=== PATIENT | female | born 1990 | race Two or more races ===

== ENCOUNTER 2020-09-17 12:31 | Emergency (ER) | payer OTHER ==
--- NOTE | 2020-09-17 13:33 | EDM.PDOC ---
ED HPI GENERAL MEDICAL PROBLEM - General Chief Complaint: Headache Stated Complaint: COVID SX/HEADACHE/NO TASTE OR SMELL Time Seen by Provider: 09/17/20 13:23 Source of Information: Reports: Patient History Limitations: Reports: No Limitations - History of Present Illness INITIAL COMMENTS - FREE TEXT/NARRATIVE: 30-year-old female attends the ED for concerns of developing COVID-19 illness. She states she has developed nasal congestion and sinus infection over the last 36 hours. Appreciated today and loss of sense of taste and smell. No significant cough fever or myalgia. Mild diffuse headache. Patient has had [email or web address] COVID-19 vaccination in May of this year. She had no ill effects from the vaccine. Patient has plans to travel to [place] within the next 3 weeks. T herefore she wants to know for sure if she had COVID-19 illness. Onset: Sudden Onset Date: 09/16/20 (Increase symptoms today of loss of sense of taste and smell.) Duration: Hour(s):, Getting Worse Location: Reports: Head (Headache), Face (Nasal and sinus congestion.) Quality: Reports: Ache Severity: Moderate Improves with: Reports: Medication (Has used Tylenol only once in the last 24 hours.) Worsens with: Reports: None Context: Reports: Other (Patient presents to rule out COVID-19 illness due to acute onset of symptoms of sinus congestion loss of sense of taste and smell. No associated cough. No nausea vomiting or diarrhea. Appetite is fair.). Denies: Activity, Exercise, Lifting, Sick Contact, Trauma Associated Symptoms: Reports: Loss of Appetite, Other (Reported loss of sense of taste and smell.). Denies: Confusion, Chest Pain, Cough, cough w sputum, Diaphoresis, Fever/Chills, Headaches, Malaise, Nausea/Vomiting, Rash, Seizure, S hortness of Breath, Syncope, Weakness Treatments ASSORTER: Reports: Acetaminophen Headache Pain Score (Numeric/FACES): 6 - Related Data Allergies Allergy/AdvReac Type Severity Reaction Status Date / Time No Known Allergies Allergy Verified 09/17/20 13:06 Home Meds: Home Meds Cefdinir [Omnicef] 300 mg PO BID #16 cap 09/17/20 [Rx] Loratadine/Pseudoephedrine [Claritin-D 24 Hour Tablet] 1 each PO DAILY #5 tab.er.24h 09/17/20 [Rx] Past Medical History - Past Surgical History Female Surgical History: Reports: Section Social & Family History - Tobacco Use Tobacco Use Status *Q: Never Tobacco User Second Hand Smoke Exposure: No - Recreational Drug Use Recreational Drug Use: No - Living Situation & Occupation Living situation: Reports: Occupation: Employed ED ROS GENERAL - Review of Systems Review Of Systems: See Below Constitutional: Reports: Decreased Appetite. Denies: Fever, Chills, Malaise, Weakness, Fatigue, Weight Loss HEENT: Reports: Sinus Problem, Other (Sinus congestion over the last 36 hours. Subjective loss of sense of taste and smell today.) Respiratory: Denies: Shortness of Breath, Wheezing, Pleuritic Chest Pain, Cough, Sputum Cardiovascular: Reports: No Symptoms Endocrine: Reports: No Symptoms GI/Abdominal: Reports: Decreased Appetite (She reports mild loss of appetite.). Denies: Abdominal Pain, Diarrhea, Nausea, Vomiting : Reports: No Symptoms Musculoskeletal: Reports: No Symptoms Skin: Reports: No Symptoms Neurological: Reports: No Symptoms Psychiatric: Reports: No Symptoms Hematologic/Lymphatic: Reports: No Symptoms Immunologic: Reports: No Symptoms - Physical Exam Exam: See Below Exam Limited By: No Limitations General Appearance: Alert, WD/WN, No Apparent Distress, Other (80.) Eye Exam: Bilateral Eye: Normal Inspection, PERRL Ears: Normal TMs Nose: Nasal Drainage, Clear Rhinorrhea Throat/Mouth: Normal Lips, Normal Teeth, Normal Gums, Other (Mild oropharyngeal it erythema posterior oropharynx. Tonsils are absent.) Head Exam: Atraumatic, Normocephalic Neck: Normal Inspection, Supple, Non-Tender, Full Range of Motion. No: Lymphadenopathy (L), Lymphadenopathy (R) Respiratory/Chest: No Respiratory Distress, Lungs Clear, Normal Breath Sounds. No: Rales, Rhonchi, Wheezing Cardiovascular: Normal Peripheral Pulses, Regular Rate, Rhythm, No Edema, No Gallop, No Murmur, No Rub GI/Abdominal: Normal Bowel Sounds, Soft, Non-Tender, No Organomegaly, No Mass, Pelvis Stable Neuro Exam (Abbreviated): Alert, Oriented, CN II-XII Intact, Normal Cognition Back Exam: Normal Inspection, Full Range of Motion. No: CVA Tenderness (L), CVA Tenderness (R) Extremities: Normal Inspection, Normal Range of Motion, Non-Tender, No Pedal Edema Psychiatric: Normal Affect, Normal Mood Skin Exam: Warm, Dry, Intact, Normal Color, No Rash Course - Vital Signs Last Recorded V/S: Last Vital Signs Temp 36.1 C 09/17/20 13:02 Pulse 89 09/17/20 13:02 Resp 16 09/17/20 13:02 BP 141/90 H 09/17/20 13:02 Pulse Ox 97 09/17/20 13:02 - Orders/Labs/Meds Labs: Laboratory Tests 09/17/20 09/17/20 09/17/20 Range/Units 13:55 13:55 14:00 WBC 11.41 H (3.98-10.04) K/mm3 RBC 4.60 (3.98-5.22) M/mm3 Hgb 13.3 (11.2-15.7) gm/dl Hct 40.3 (34.1-44.9) % MCV 87.6 (79.4-94.8) fl MCH 28.9 (25.6-32.2) pg MCHC 33.0 (32.2-35.5) g/dl RDW Std Deviation 43.0 (36.4-46.3) fL Plt Count 388 H (182-369) K/mm3 MPV 8.9 L (9.4-12.3) fl Neut % (Auto) 71.3 H (34.0-71.1) % Lymph % (Auto) 21.9 (19.3-51.7) % Sullivan % (Auto) 5.2 (4.7-12.5) % Eos % (Auto) 1.1 (0.7-5.8) Baso % (Auto) 0.4 (0.1-1.2) % Neut # (Auto) 8.15 H (1.56-6.13) K/mm3 Lymph # (Auto) 2.50 (1.18-3.74) K/mm3 Sullivan # (Auto) 0.59 H (0.24-0.36) K/mm3 Eos # (Auto) 0.12 (0.04-0.36) K/mm3 Baso # (Auto) 0.04 (0.01-0.08) K/mm3 C-Reactive Protein 1.5 H* (<1.0) mg/dL SARS-CoV-2 RNA (TERELL) Negative (NEGATIVE) Meds: Medications Discontinued Medications Generic Name Dose Route Start Last Admin Trade Name Reji PRN Reason Stop Dose Admin Ibuprofen 800 mg 09/17/20 14:02 09/17/20 14:30 Ibuprofen 800 Mg Tab PO 09/17/20 14:03 800 mg ONETIME ONE Administration - Radiology Interpretation Free Text/Narrative:: 30-year-old female attends the ED out of concerns for COVID-19 illness. She reports over the last 36 hours she has developed nasal congestion and sinus pressure mildly in her mid forehead and maxillary sinuses. Aware of mild postnasal drip. She appreciated the day at work that she had lost her sense of taste and smell. She ate food that she did usually has an aversion to and did fine. She took a shot of Frieda tequila and felt the burning in her esophagus but did not sense the taste. Out of an abundance for concern for possible infecting coworkers and family members she came to the ED for evaluation. Patient also has a upcoming trip to [place] and needs to know for sure that her COVID-19 status is negative. Patient has received [email or web address] COVID-19 vaccination in May of this year with no problems. Plan is she does show signs of sinusitis and nasal congestion. Minimal posterior oropharyngeal erythema. Lungs are clear. Plan COVID-19 screen to be done. Routine labs as well. - Re-Assessments/Exams Free Text/Narrative Re-Assessment/Exam: 09/17/20 15:00 White count is mildly elevated at 11.41. Differential reveals 71.3% neutrophils on the auto differential. Hemoglobin is 13.3 with hematocrit of 40.3. Platelet count is 388,000 slightly elevated. C-reactive protein is elevated at 1.5. COVID-19 screen is pending 09/17/20 15:31 COVID-19 screen did return as negative. Patient will be placed on Omnicef 300 mg twice daily for sinus infection x8 days.. Patient was also placed on Claritin-D 24-hour release once daily every morning for the next 5 days. Patient advised that occasionally patients who come quickly after onset of symptoms can have a negative COVID-19 screen. If she develops increasing symptoms over the next 72 hours with cough headache myalgias loss of appetite she will need a repeat COVID-19 screen. Departure - Departure Time of Disposition: 15:31 Disposition: Home, Self-Care 01 Condition: Fair Clinical Impression: Sinusitis Qualifiers: Sinusitis location: sphenoidal Chronicity: acute Recurrence: non-recurrent Qualified Code(s): J01.30 - Acute sphenoidal sinusitis, unspecified - Discharge Information *PRESCRIPTION DRUG MONITORING PROGRAM REVIEWED*: Not Applicable *COPY OF PRESCRIPTION DRUG MONITORING REPORT IN PATIENT ROSITA: Not Applicable Prescriptions: Loratadine/Pseudoephedrine [Claritin-D 24 Hour Tablet] 1 each PO DAILY #5 tab.er.24h Cefdinir [Omnicef] 300 mg PO BID #16 cap Instructions: Sinusitis, Adult Referrals: PCP,None [Primary Care Provider] - Forms: ED Department Discharge Additional Instructions: Evaluation in the emergency room today in regards to symptoms concerning for possible COVID-19 illness. Appreciated loss of sense of taste and smell with nasal congestion. No associated cough. You have had your COVID-19 vaccine. COVID-19 screening today proved to be negative. However white count is elevated suggesting bacterial infection of your sinuses. I am going to therefore place you on antibiotic treatment. Omnicef 300 mg tablet twice daily for the next 8 days to clear up sinus infection. Also placed you on nasal decongestant Claritin-D 1 tablet once daily every morning for the next 5 days. It is okay to still use Motrin 600 mg every 6 hours for pain and inflammation if needed. Sepsis Event Note (ED) - Evaluation Sepsis Screening Result: No Definite Risk - Focused Exam Vital Signs: Vital Signs Temp Pulse Resp BP Pulse Ox 09/17/20 13:02 36.1 C 89 16 141/90 H 97
[2020-09-17] MEDS ORDERED: Ibuprofen 800 MG Tab PO ONE (14:02)
== END 2020-09-17 16:03 | disposition home or self-care (01) ==
LOC: JD.ED 12:31
DX: J01.30 Acute sphenoidal sinusitis, unspecified (principal); Z20.822 Contact with and (suspected) exposure to COVID-19
CPT/HCPCS: 36415; 85025; 86140; 87635; 99283; A9270; U0002